=== PATIENT | female | born 1980 | race Caucasian/White ===

== ENCOUNTER → 2023-09-28 17:57 | Outpatient (REF) | payer BC, SELFPAY ==
--- NOTE | 2023-09-28 18:10 | DI.RAD_ITS ---
Exam(s) XR CHEST 2V PA LATERAL EXAM: XR CHEST 2V PA LATERAL CLINICAL HISTORY: evaluate pathology R06.02. TECHNIQUE: 2D digital imaging was performed. COMPARISON: No exams were available for comparison FINDINGS: 2 views: Heart size is normal. The mediastinum is not widened. Right lung is clear. However, there is significant infiltrate in the left upper lobe extending howev er from the superior hilum towards the pleural surface. There is blunting of the ipsilateral left co stophrenic angle indicating small left pleural effusion. No pleural effusion evident on the opposite -right side. IMPRESSION: Left upper lobe infiltrate and small left pleural effusion. Follow-up to resolution recommended to johnson bragae out neoplasm. DATA REPOSITORY: RADIATION DOSE DELIVERED:
--- NOTE | 2023-09-28 18:24 | DI.VRAD_ITS ---
PROCEDURE INFORMATION: Exam: XR Chest Exam date and time: 09/28/2023 18:06 Age: 43 years old Clinical indication: Other: Evaluate pathology TECHNIQUE: Imaging protocol: Radiologic exam of the chest. Views: 2 views. COMPARISON: No relevant prior studies available. FINDINGS: Lungs: Moderate patchy left upper lobe opacity. Pleural spaces: Trace left pleural fluid versus pleural thickening. No pneumothorax. Heart/Mediastinum: No significant cardiomegaly. Left hilar adenopathy is possible Bones/joints: No acute fracture. IMPRESSION: 1. Moderate patchy left upper lobe opacity, presumed pneumonia, follow-up warranted. 2. Trace left pleural fluid versus pleural thickening. Dictated and Authenticated by: Betsy Francis MD. Ordering:VIRAJ Mathew MD
== END ==
LOC: DI 17:57
PROVIDERS: Visit Provider Nurse Practitioner Family
DX: R06.02 Shortness of breath (principal); J90 Pleural effusion, not elsewhere classified
CPT/HCPCS: 71046

== ENCOUNTER 2024-07-08 09:22 | Outpatient (CLI) | payer BC, SELFPAY ==
[2024-07-08 08:23] LABS: HCT 41.3 % (36.0-46.0); HGB 14.2 g/dL (11.2-15.7); MCH 31.3 pg (27.0-33.0); MCHC 34.4 % (32.0-36.0); MCV 91 fL (80-95); MPV 10.5 fL (8.0-11.0); Platelet Count 263 10^3/uL (130-400); RBC 4.53 10^6/uL (3.93-5.22); RDW 11.6 % (11.7-14.6); RDW-SD 38.4 fL; WBC 10.52 10^3/uL (4.4-10.8)
[2024-07-08 08:51] LABS: ALT 33 U/L (14-59); AST 17 U/L (15-37); Albumin 3.9 g/dL (3.4-5.0); Alkaline Phosphatase 77 U/L (46-116); Anion Gap 12.8 mmol/L (3-11); BUN 21 mg/dL (7-18); Bilirubin, Total 0.5 mg/dL (0.2-1.0); CO2 24.2 mmol/L (21.0-32.0); CREATININE 0.9 mg/dL (0.55-1.02); Calcium 9.1 mg/dL (8.5-10.1); Calculated LDL 113 mg/dL (<100); Chloride 105 mmol/L (98-107); Cholesterol 191 mg/dL (<200); Estimated GFR 81.35 (mL/min/1.73m2); Glucose 110 mg/dL (74-106); HDL Cholesterol 46 mg/dL (>or=50); Potassium 3.9 mmol/L (3.5-5.1); Sodium 142 mmol/L (136-145); TSH (W/Ref FT4) 3.57 uIU/mL (0.36-3.74); Triglyceride 163 mg/dL (<150)
[2024-07-08 11:03] LABS: Hemoglobin A1C 5.1 % (<5.7)
[2024-07-09 12:22] LABS: Ro60 Ab, IgG <7.0 CU (<20.0); SS-A/Ro, IgG 14.8 CU (<20.0); SS-B (La) Ab, IgG <3.3 CU (<20.0)
[2024-07-09 15:12] LABS: ANA Interpretation Negative (Negative)
== END 2024-07-08 09:23 | disposition home or self-care (01) ==
LOC: LBO 09:22
PROVIDERS: PCP Nurse Practitioner Family; Visit Provider Nurse Practitioner Family
DX: Z00.00 Encounter for general adult medical examination without abnormal findings (principal); D64.9 Anemia, unspecified; J45.909 Unspecified asthma, uncomplicated; O24.419 Gestational diabetes mellitus in pregnancy, unspecified control; Z82.69 Family history of other diseases of the musculoskeletal system and connective tissue; R68.2 Dry mouth, unspecified; H04.123 Dry eye syndrome of bilateral lacrimal glands
CPT/HCPCS: 36415; 80053; 80061; 85027; 83036; 84443; 86038; 86235

== ENCOUNTER 2024-07-31 00:11 | Outpatient (CLI) | payer BC, SELFPAY ==
--- NOTE | 2024-07-31 07:45 | DI.RAD_ITS ---
Exam(s) XR CHEST 2V PA LATERAL EXAM: XR CHEST 2V PA LATERAL CLINICAL HISTORY: small left pleural effusion,ABNL CHEST XR,R93.89. TECHNIQUE: 2D digital imaging was performed. COMPARISON: CR,XR XR CHEST 2V PA LATERAL from 09/28/2023 FINDINGS: 2 views: Heart size is normal. The mediastinum is not widened. There has been significant improvement in the previously described left parahilar-left upper lobe inf iltrate which appears to have resolved. There presently no infiltrates and there are presently no pl eural effusions. Regional bones appear unremarkable in the chest. IMPRESSION: No acute pulmonary findings.Significant improvement in the previously present left parahilar-left upp er lobe infiltrate which was evident on images of September 2023. DATA REPOSITORY: RADIATION DOSE DELIVERED:
--- NOTE | 2024-07-31 16:02 | DI.MAMMO_ITS ---
Exam(s) MAMMO SCREENING EXAM: MAMMO SCREENING CLINICAL HISTORY: screening,Z12.39. TECHNIQUE: Bilateral full field digital CC and MLO mammographic images were obtained with 3D tomosyn thesis and utilizing computer aided detection (CAD). COMPARISON: None. This is a baseline mammogram on this 43-year-old FINDINGS: The fibroglandular tissue pattern is moderately dense In the posterior aspect of the right breast there is a prominent lobulated partially included nodule up against the chest wall which measures approximately 2 x 1.6 cm. Requires further imaging. There are no malignant-appearing microcalcifications in this region nor elsewhere in either breast. In the left breast there is a slightly lobulated nodule laterally measuring 9 by 4 mm, located 9 cm i n from the nipple in the lateral aspect of the breast. Further imaging recommended. There is no significant architectural distortion nor skin thickening-retraction. IMPRESSION: There is a significant prominent lobulated noncalcified nodule up against the chest wall in the right breast, medial of center approximately 10 cm in from the nipple. Spot compression view and ultrasou nd recommended. In the opposite-left breast there is a smaller 9 mm nodule located laterally. Spot compression view and ultrasound also recommended BI-RADS Category 0 - Incomplete: Need additional imaging evaluation Breast Density - Category C - The breast are heterogeneously dense, which may obscure small masses. Breast density Category C or D implies that the patient has dense breast tissue. Dense breast tissue can make it harder to find cancer on a mammogram. Dense breast tissue is also associated with an incr eased risk of breast cancer. This information about the result of the mammogram report was provided to the patient to raise their awareness. Use this report when you speak with the patient about their risks for breast cancer, which includes their family history. At that time, you may recommend additional screening tests (Ultrasoun d or MRI) as these tests may add significant information. A negative radiographic report should not delay biopsy if a dominant or clinically suspicious mass is present. Up to ten percent of cancers are not identified on mammography. A negative report may reinforce clinical impression. Adenosis and dense breasts may obscure an underlying neoplasm. False positive reports average 6 to 10%. Patient will receive a letter notifying them of these results.
== END 2024-07-31 00:31 ==
LOC: DI 00:12
PROVIDERS: PCP Nurse Practitioner Family; Visit Provider Nurse Practitioner Family
DX: Z12.31 Encounter for screening mammogram for malignant neoplasm of breast (principal); R93.89 Abnormal findings on diagnostic imaging of other specified body structures; R92.323 Mammographic fibroglandular density, bilateral breasts
CPT/HCPCS: 77063; 77067; 71046

== ENCOUNTER 2024-08-15 01:03 | Outpatient (CLI) | payer BC, SELFPAY ==
--- NOTE | 2024-08-15 | DI.US_ITS ---
Exam(s) US BREAST LT COMPLETE US BREAST RT COMPLETE MG MAMMO SCREEN CALL BACK BI EXAM: MG MAMMO SCREEN CALL BACK BILATERAL AND COMPLETE BILATERAL BREAST ULTRASOUND CLINICAL HISTORY: Rt: 2 x 1.6 cm lobulated partially included nodule against chest wall. LT: SMALL LATERAL NODULE. TECHNIQUE: BILATERAL spot mammographic images obtained with 3D tomosynthesisand utilizing computer aided detection (CAD). . Complete BILATERAL breast Ultrasound was also performed, including all 4 quadrants, the retroareolar region, and the ipsilateral axilla. COMPARISON: Prior mammograms were reviewed. This additional imaging was performed due to findings described on the recent baseline screening mammogram of 07/31/2024. FINDINGS: DIAGNOSTIC MAMMOGRAM: Additional mammographic views performed todayagain revealed the medially located lobulated nodule located posteriorly in the right breast. Additional spot view of the asymmetric density in the lateral aspect of the left breast renders it less concerning COMPLETE BILATERAL BREAST ULTRASOUND: Right breast ultrasound: Ultrasound performed today reveals a solitary finding in the right breast which corresponds to the finding on the mammogram. This is a lobulated wider than taller solid nodule measuring 2.1 x 1.2 cm with neutral through transmission. 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 There are no other focal ultrasound findings in all 4 quadrants of the right breast. Scanning of the ipsilateral axilla reveals no significant adenopathy. Left breast ultrasound: No evidence of solid or significant cystic lesions in all 4 quadrants. Scanning of the ipsilateral axilla reveals no significant adenopathy. IMPRESSION: 1. There is a solid 2.1 x 1.2 cm lobulated wider than taller nodule posteriorly at the 1 o'clock position (9 cm in from the nipple) in the right breast seen on ultrasound which corresponds to the mammographic finding. This has appearance of a probable fibroadenoma. Ultrasound-guided core biopsy is recommended. 2. No significant left breast findings. Appropriate follow-up as discussed by myself with the patient today is ultrasound-guided core biopsy of the right breast nodule at the 1 o'clock position. The patient was informed of these findings and recommendations by myself prior to leaving the department today. Also spoke by phone with provider Lis Friedman at [facility] 08/15/2024 at 10:50 a.m. BI-RADS Category 4 - Suspicious Abnormality: Biopsy should be considered Breast Density - Category C - The breast are heterogeneously dense, which may obscure small masses. Breast density Category C or D implies that the patient has dense breast tissue. Dense breast tissue can make it harder to find cancer on a mammogram. Dense breast tissue is also associated with an increased risk of breast cancer. This information about the result of the mammogram report was provided to the patient to raise their awareness. Use this report when you speak with the patient about their risks for breast cancer, which includes their family history. At that time, you may recommend additional screening tests (Ultrasound or MRI) as these tests may add significant information. A negative radiographic report should not delay biopsy if a dominant or clinically suspicious mass is present. Up to ten percent of cancers are not identified on mammography. A negative report may reinforce clinical impression. Adenosis and dense breasts may obscure an underlying neoplasm. False positive reports average 6 to 10%. Patient will receive a letter notifying them of these results.
== END 2024-08-15 01:23 ==
LOC: DI 01:03
PROVIDERS: PCP Nurse Practitioner Family; Visit Provider Nurse Practitioner Family
DX: Z12.31 Encounter for screening mammogram for malignant neoplasm of breast (principal); R92.333 Mammographic heterogeneous density, bilateral breasts; D24.1 Benign neoplasm of right breast
CPT/HCPCS: 76642; 77063; 77067

== ENCOUNTER 2024-08-20 01:24 | Outpatient (CLI) | payer BC, SELFPAY ==
--- NOTE | 2024-08-20 | DI.US_ITS ---
Exam(s) US NEEDLE LOCAL BREAST WO RAD EXAM: Rt breast mass,ULTRASOUND GUIDED BX COMPARISON: No exams were available for comparison TECHNIQUE: Ultrasound performed using standard protocol. FINDINGS: Sonography was provided for Dr. Yassine Jauregui during the performance of a right breast biopsy and biopsy clip placement. Please refer to the procedure report for complete details. DATA REPOSITORY:
--- NOTE | 2024-08-20 10:04 | BREAST_PTH ---
PATIENT: Shannan Shelton LOC: [facility] U#:[id number] AGE/SX: 44/F ROOM: RE08/20/[address]: Yassine Jauregui MD : 1980 BED: DIS: 08/20/2024 SPEC #: [id number] RECD: 08/20/24 12:40 STATUS: [place] REQ #: [id number] MAGDALENA: 08/20/24 10:[address]: Yassine Jauregui DEPT: Surgical Specimen RECD BY: Minerva Perkins ENTERED: 08/20/24 12:41 SP TYPE: Breast OTHR DR: Lis Friedman, SJ Tissues: 1 - BREAST BX NEEDLE Procedures: GROSS AND MICRO LEVEL 4 Comments: [id number]
--- NOTE | 2024-08-20 10:11 | OPPNE_ITS ---
Date of service: 08/20/24 Time of Service: 10:11 Procedure Note Date of procedure: 08/20/24 Procedure: Core needle biopsy of right breast mass Surgeon/Proceduralist/Physician: Yassine Jauregui Procedure Diagnosis: Right breast mass Procedure Indications: Shannan is a 44-year-old woman who has a abnormality on her routine screening mammogram. Follow-up ultrasound demonstrated a roughly 2 x 1 cm mass in the right breast. She was recommended to undergo biopsy. Procedure Description: I met with Shannan and her , and I reviewed the plan for a core needle biopsy of the abnormality seen on her right breast mammogram and ultrasound. I explained the procedure, and the risks associated with it. Shannan was able to provide informed consent. Next, with the assistance of the elevator service technician, limited ultrasound to the right breast was performed, I was able to visualize the mass in question. It appeared concordant with her previous imaging. This is in the upper inner quadrant of the right breast. The skin adjacent to the probe was prepared. Next, I established a generous skin wheal with local anesthetic, and anesthetized the trajectory towards the mass. I then made a small skin incision with a scalpel, and introduced a 22 mm Bard core biopsy needle device up to the edge of the lesion. Specimen was obtained. Quality of the specimen was excellent. 2 more office services representative samples of the lesion were obtained. Next, an ultra clip II marker was placed in the center of the lesion. Gentle pressure was held over the access site, and a Band-Aid was applied. It was hemostatic. Specimens were placed in formalin for formal tissue diagnosis.
--- NOTE | 2024-08-20 10:24 | DI.MAMMO_ITS ---
Exam(s) MG MAMMO DIAGNOSTIC UNI EXAM: MAMMO DIAGNOSTIC UNI CLINICAL HISTORY: confirm clip placement N63.10 LUMP RIGHT BREAST, RT BREAST MASS. TECHNIQUE: Craniocaudal and mediolateral oblique Full Field Digital Mammography views of the right breast with Computer Aided Diagnosis. COMPARISON: US US BREAST RT COMPLETE from 08/15/2024 US US NEEDLE LOCAL BREAST WO RAD from 08/20/2024 FINDINGS: Mammography/Tomosynthesis: Masses/Architectural Distortion: There is again seen a lobulated soft tissue mass in the upper inner quadrant of the right breast. There is now a biopsy clip seen within the mass. Microcalcifictions: No suspicious pleomorphic-type are seen. Skin Thickening/Nipple Retraction: None. IMPRESSION: 1. Interval biopsy of the lobulated mass in the upper inner quadrant of the right breast. 2. A biopsy clip is in an appropriate position within the mass. 3. BI-RADS Category 4 - Suspicious Abnormality: Biopsy should be considered Breast Density - Category C - The breast are heterogeneously dense, which may obscure small masses. Breast density Category C or D implies that the patient has dense breast tissue. Dense breast tissue can make it harder to find cancer on a mammogram. Dense breast tissue is also associated with an increased risk of breast cancer. This information about the result of the mammogram report was provided to the patient to raise their awareness. Use this report when you speak with the patient about their risks for breast cancer, which includes their family history. At that time, you may recommend additional screening tests (Ultrasound or MRI) as these tests may add significant information. A negative radiographic report should not delay biopsy if a dominant or clinically suspicious mass is present. Up to ten percent of cancers are not identified on mammography. A negative report may reinforce clinical impression. Adenosis and dense breasts may obscure an underlying neoplasm. False positive reports average 6 to 10%. Patient will receive a letter notifying them of these results.
== END 2024-08-20 01:44 ==
LOC: DI 01:25
PROVIDERS: PCP Nurse Practitioner Family; Visit Provider Surgery
DX: D24.1 Benign neoplasm of right breast; N60.91 Unspecified benign mammary dysplasia of right breast
CPT/HCPCS: 19083; 77061; 77065; 88305; 76942; G0279